=== PATIENT | female | born 1955 | race African-American/Black ===

== ENCOUNTER → 2016-05-05 | Outpatient (CLI) | payer BC ==
[~2016-05-05] MED LIST: ACCUNEB SO1.25 MG/1 INH; ADULT LOW DOSE81 MG; ALBUTEROL NEB; BACTRIM DS TAB1 EACH PO; BENADRYL25 MG PO; DAZIDOX10 MG; HYDROCODONE-AP1 EAC6 PO; IBUPROFEN; IBUPROFEN 200200 M1 PO; IBUPROFEN 800800 MG PO; KAPIDEX60 MG PO; LIDOCAINE700 MG; LORTAB 5 MG/5001 TA1 PO; NORCO 5-325 TA1 EACH PO; NORFLEX100 MG PO; PERCOCET 10-321 EACH PO; PERCOCET 5-3251 EACH PO; PREDNISONE 20 M20 M1 PO; PREDNISONE 20 M20 MG PO; PREVACID 24HR15 MG PO; PROVENTIL; PROVENTIL IN; SYNTHROID; SYNTHROID112 MCG PO; TAGAMETTAB; ULTRAM 50MG TAB50 MG PO; VALIUM5 MG PO; ZANTAC; ZPAK PO; ZYRTEC10 MG PO
== END ==
LOC: RAD 13:25
DX: Z12.31 Encounter for screening mammogram for malignant neoplasm of breast (principal)

== ENCOUNTER → 2017-05-06 | Outpatient (CLI) | payer MEDICARE, OTHER | LOC: RAD 01:13 | DX: Z12.31 Encounter for screening mammogram for malignant neoplasm of breast (principal) ==

== ENCOUNTER → 2018-06-30 | Outpatient (CLI) | payer MEDICARE | LOC: RAD 00:30 | DX: Z12.31 Encounter for screening mammogram for malignant neoplasm of breast (principal) ==

== ENCOUNTER → 2019-11-29 | Outpatient (CLI) | payer MEDICARE | LOC: RAD 15:04 | PROVIDERS: ATTEND Internal Medicine | DX: Z12.31 Encounter for screening mammogram for malignant neoplasm of breast (principal) ==

== ENCOUNTER 2020-09-20 19:33 | Emergency (ER) | payer MEDICARE ==
[~2020-09-20] VITALS: Ht 165.1 cm; Wt 112.5 kg
[2020-09-20 20:32] LABS: URINE BILIRUBIN NEGATIVE (Negative); URINE BLOOD NEGATIVE (Negative); URINE CLARITY CLEAR; URINE COLOR YELLOW; URINE GLUCOSE-RANDOM* NEGATIVE (Negative); URINE KETONES NEGATIVE (Negative); URINE LEUKOCYTES-REFLEX NEGATIVE (Negative); URINE NITRITE-REFLEX NEGATIVE (Negative); URINE PROTEIN (DIPSTICK) 2+ (Negative); URINE UROBILINOGEN 0.2 E.U./dl (0.2-1.0)
[2020-09-20 20:35] LABS: ANION GAP 9 mmol/L (7-16); BUN 25 mg/dL (7-18); CALCIUM 9.2 mg/dL (8.5-10.1); CHLORIDE 107 mmol/L (98-107); CO2 26 mmol/L (21-32); CREATININE 1.4 mg/dL (0.6-1.0); GLUCOSE 83 mg/dL (74-106); SODIUM 142 mmol/L (136-145)
[2020-09-20 20:36] LABS: ABSOLUTE NEUTROPHILS 4.3 thou/uL (1.4-8.2); BASOPHILS 0.6 % (0.0-2.0); EOSINOPHILS 2.2 % (0.0-3.0); HEMATOCRIT 41.6 % (37.0-47.0); HEMOGLOBIN 13.6 gm/dL (12.0-15.0); LYMPHOCYTES 32.1 % (24.0-44.0); MCHC 32.7 g/dL (28.0-37.0); MCV 94.8 fL (80.0-100.0); MONOCYTES 10.9 % (1.0-8.0); PLATELET COUNT 197 thou/uL (150-400); POLYS 54.2 % (36.0-66.0); RBC 4.39 mil/uL (4.20-5.00); RDW 15.5 % (10.5-14.5); WBC 7.9 thou/uL (4.0-11.0)
[2020-09-20 20:40] LABS: POTASSIUM 4.9 mmol/L (3.5-5.1)
[2020-09-20 20:41] LABS: ALBUMIN 3.3 g/dL (3.4-5.0); DIRECT BILIRUBIN < 0.1 mg/dL (<0.1-0.2); SGOT 29 U/L (15-37); SGPT 19 U/L (14-59); TOTAL BILIRUBIN 0.4 mg/dL (0.2-1.0); TOTAL PROTEIN 7.7 g/dL (6.4-8.2)
[2020-09-20] MEDS ORDERED: ICY HOT1 EAC1 TRANSDERM (21:21)
[2020-09-20 21:32] LABS: BACTERIA-REFLEX 1-9 Few /HPF (None Seen); CASTS None Seen /LPF (None Seen); SQUAMOUS 0-3 Few /LPF (0-3); URINE RBC None Seen /HPF (NONE SEEN); URINE WBC-REFLEX 0-5 Rare /HPF (0-5)
[2020-09-20 21:33] LABS: CRYSTALS None Seen /LPF (None Seen)
[2020-09-20 22:12] VITALS: BP 184/82
== END 2020-09-20 22:12 | disposition home or self-care (01) ==
LOC: ER 19:33
PROVIDERS: Emergency Medicine
DX: I10 Essential (primary) hypertension (principal); R20.2 Paresthesia of skin; R51.9 Headache, unspecified; K21.9 Gastro-esophageal reflux disease without esophagitis; F17.210 Nicotine dependence, cigarettes, uncomplicated; Z91.012 Allergy to eggs; Z88.1 Allergy status to other antibiotic agents; Z88.0 Allergy status to penicillin; Z79.899 Other long term (current) drug therapy; Z90.710 Acquired absence of both cervix and uterus

== ENCOUNTER → 2020-12-18 | Outpatient (CLI) | payer MEDICARE ==
[~2020-12-18] MED LIST changes: +ICY HOT1 EAC1 TRANSDERM
== END ==
LOC: BC 13:48
PROVIDERS: ATTEND Internal Medicine
DX: Z12.31 Encounter for screening mammogram for malignant neoplasm of breast (principal)